=== PATIENT | male | born 2000 | race Caucasian/White ===

== ENCOUNTER 2023-01-22 06:00 | Outpatient (RCR) | payer MEDICAID, SELFPAY | END 2023-02-21 23:59 | disposition home or self-care (01) | LOC: GPT 06:00 | PROVIDERS: Visit Provider Orthopaedic Surgery | DX: M25.562 Pain in left knee (principal); G89.29 Other chronic pain | CPT/HCPCS: 97110; 97112; 97116; 97140; 97162; 97530 ==

== ENCOUNTER 2023-02-22 06:00 | Outpatient (RCR) | payer MEDICAID, SELFPAY | END 2023-03-24 23:59 | disposition home or self-care (01) | LOC: GPT 06:00 | PROVIDERS: Visit Provider Orthopaedic Surgery | DX: M25.562 Pain in left knee (principal); G89.29 Other chronic pain | CPT/HCPCS: 97110; 97112 ==